=== PATIENT | male | born 1965 | race Two or more races ===

== ENCOUNTER 2023-06-14 09:25 | Emergency (ER) | payer OTHER ==
[~2023-06-14] VITALS: Ht 170.2 cm; Wt 81.6 kg
[2023-06-14] MEDS ORDERED: DICLOFENAC SODI75 MG PO (12:57)
== END 2023-06-14 13:37 | disposition home or self-care (01) ==
LOC: ER 09:25
DX: G44.209 Tension-type headache, unspecified, not intractable (principal); I10 Essential (primary) hypertension; Z88.0 Allergy status to penicillin